=== PATIENT | female | born 1970 | race Caucasian/White ===

== ENCOUNTER → 2023-03-03 | Outpatient (CLI) | payer OTHER | LOC: M WUC 10:10 | PROVIDERS: ATTEND Nurse Practitioner Adult Health | DX: M79.642 Pain in left hand (principal) ==

== ENCOUNTER → 2025-03-07 | Outpatient (REF) | payer OTHER, BC ==
[2025-03-07 15:14] LABS: HEPATITIS C VIRUS ABY INDEX < 0.02 INDEX (<0.8)
[2025-03-11 20:28] LABS: LYME TOTAL ANTIBODY CIA <= 0.90 Index (<=0.90)
[2025-03-12 11:14] LABS: CERULOPLASMIN 28.0 mg/dL (14-48)
[2025-03-13 00:42] LABS: BORRELIA SPECIES DNA NOT DETECTED (NOT DETECT)
== END ==
LOC: M LAB REF 12:15
PROVIDERS: ATTEND Nurse Practitioner Adult Health
DX: R74.01 Elevation of levels of liver transaminase levels (principal)